=== PATIENT | female | born 1960 | race Caucasian/White ===

== ENCOUNTER 2019-11-27 09:52 | Outpatient (CLI) | payer BC ==
[2019-11-27] MEDS ORDERED: GADOTERATE 10 MMOL/20 ML VIAL ONE (10:38)
== END 2019-11-27 23:59 | disposition home or self-care (01) ==
LOC: RAD 09:52
PROVIDERS: ATTEND Otolaryngology
DX: K11.6 Mucocele of salivary gland (principal); D37.030 Neoplasm of uncertain behavior of the parotid salivary glands
CPT/HCPCS: 70543; A9575

== ENCOUNTER 2019-11-28 12:51 | Outpatient (CLI) | payer BC ==
[~2019-11-28 12:51] MED LIST: LIDOCAINE 1%, 10ML ONE
== END 2019-11-28 23:59 | disposition home or self-care (01) ==
LOC: RAD 12:51
PROVIDERS: ATTEND Otolaryngology
DX: D37.030 Neoplasm of uncertain behavior of the parotid salivary glands (principal)
CPT/HCPCS: 10005; 76536; 88112; 88173; 88305; J3490; 76942

== ENCOUNTER 2020-04-07 09:15 | Outpatient (CLI) | payer BC, OTHER | END 2020-04-07 23:59 | disposition home or self-care (01) | LOC: RAD 09:15 | PROVIDERS: ATTEND Internal Medicine Cardiovascular Disease | DX: Z13.6 Encounter for screening for cardiovascular disorders (principal); E78.00 Pure hypercholesterolemia, unspecified; R00.2 Palpitations; K44.9 Diaphragmatic hernia without obstruction or gangrene | CPT/HCPCS: 75571 ==

== ENCOUNTER → 2020-04-07 | Outpatient (CLI) | payer BC, OTHER | END | disposition home or self-care (01) | LOC: CVU 09:24 | PROVIDERS: ATTEND Internal Medicine Cardiovascular Disease | DX: I36.1 Nonrheumatic tricuspid (valve) insufficiency (principal); E78.00 Pure hypercholesterolemia, unspecified; R00.2 Palpitations | CPT/HCPCS: 93306; 93356 ==